=== PATIENT | female | born 1980 | race Caucasian/White ===

== ENCOUNTER → 2025-04-22 09:16 | Outpatient (CLI) | payer OTHER, SELFPAY ==
--- NOTE | 2025-04-22 09:19 | DI.MG.S_ITS ---
MM diagnostic mammo implant RT: 04/22/2025. BI-RADS: 2 CLINICAL: 44-year old female for right diagnostic mammogram. The patient presents for additional evaluation of an inconclusive screening mammogram - asymmetry. 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 No personal or first-degree family history of breast cancer. History of ovarian cancer in one first-degree relative. The patient has bilateral implants. PRIOR EXAMS Outside priors 03/22/2025. MAMMOGRAPHY TECHNIQUE: 2D and 3D (tomosynthesis) digital mammographic views obtained, with additional images as needed for full coverage. Current study was also evaluated with a Computer Aided Detection (CAD) system. DENSITY Right: C. The breast is heterogeneously dense, which may obscure small masses. IMPLANTS A breast implant is present. MAMMOGRAPHY FINDINGS Right: CC only, Inner, Anterior depth: The asymmetry seen on recent screening mammogram did not persist with additional imaging and is consistent with en face appearance of a benign vessel. There are no suspicious masses, calcifications, or other findings in the breast. IMPRESSION: Right * No evidence of malignancy with benign findings. RECOMMENDATIONS Bilateral * Annual screening mammography. COMMENTS: Findings and recommendations were conveyed to the patient during today's evaluation. OVERALL ASSESSMENT CATEGORY BI-RADS-2: Benign. [employer] recommends annual screening mammography beginning at age 40 for women with average risk of breast cancer. ELECTRONICALLY SIGNED: Yumiko Martinez M.D. on 04/22/2025 at 12:19:31 PM PT Interpreting Station ID: [id number]
== END ==
LOC: MAMMO 09:18
PROVIDERS: Referring Provider Nurse Practitioner Family; Visit Provider Nurse Practitioner Family
DX: R92.8 Other abnormal and inconclusive findings on diagnostic imaging of breast (principal); R92.331 Mammographic heterogeneous density, right breast; Z98.82 Breast implant status; Z80.41 Family history of malignant neoplasm of ovary
CPT/HCPCS: 77065; G0279